=== PATIENT | female | born 1940 | race Caucasian/White ===

== ENCOUNTER 2017-05-20 19:52 | Emergency (ER) | payer OTHER ==
[~2017-05-20] VITALS: Ht 149.9 cm; Wt 61.5 kg
[~2017-05-20 19:52] MED LIST: AMLODIPINE BESY10 MG PO; AMLODIPINE BESYL5 MG PO; CEFDINIR300 MG PO; CINNAMON500 MG PO; CIPRO500 MG PO; COMPAZINE10 MG PO; COUMADIN2.5 MG PO; COUMADIN5 MG PO; DIGOXIN125 MCG PO; DIOVAN HCT 81 TABLET PO; DOCUSATE SODIU100 MG PO; Ecotrin PO; FENOFIBRATE54 M1 PO; GLIMEPIRIDE1 MG PO; LOPRESSOR25 MG PO; LOSARTAN POTASS25 MG PO; MECLIZINE HCL12.5 M1 PO; METOPROLOL TART50 MG PO; OMEPRAZOLE40 M1 PO; ONE-A-DAY ESSE1 EAC1 PO; ONGLYZA2.5 MG PO; RANITIDINE HCL150 MG PO; TRAVATAN Z5 ML BOTH EYES; WARFARIN SODIU2.5 MG PO
[2017-05-20 20:57] LABS: HEMATOCRIT 36.1 % (36.0-46.0); MCH 31.6 PG (29.0-34.0); MCHC 34.3 G/DL (30.0-36.0); MCV 92.1 FL (83-99); MEAN PLAT.VOLUME 9.1 uM^3 (9.5-12.4); PLATELET COUNT 95 K/uL (156-360); RBC DIS.WIDTH-CV 13.8 % (11.8-14.6); RBC DIS.WIDTH-SD 45.7 % (39-53); RED BLOOD COUNT 3.92 M/uL (3.80-5.20); WHITE BLOOD COUNT 5.3 K/uL (4.1-10.2)
[2017-05-20 21:06] LABS: CHLORIDE 110 mEq/L (99-109); POTASSIUM 3.8 mEq/L (3.7-5.4); SODIUM 145 mEq/L (136-147)
[2017-05-20 21:08] LABS: GLUCOSE 181 mg/dL (70-99)
[2017-05-20 21:10] LABS: ANION GAP 12 MEQ/L (2-14); TOTAL BILIRUBIN 0.7 mg/dL (0.0-1.0)
[2017-05-20 21:12] LABS: ALKALINE PHOSPHATASE 60 IU/L (3-129); GFR ESTIMATE (CALCULATED) 36 mL/min/
[2017-05-20 21:13] LABS: UREA NITROGEN (BUN) 30 mg/dL (9-23)
[2017-05-20 23:56] LABS: ADD MIUA? YES; BILIRUBIN NEGATIVE; BLOOD LARGE; COLOR YELLOW ((YELLOW)); GLUCOSE (STRIP) NEGATIVE; KETONES NEGATIVE; LEUKOCYTES MODERATE; NITRITE NEGATIVE; PROTEIN (STRIP) 100; SPECIFIC GRAVITY 1.019 (1.000-1.030); UROBILINOGEN 0.2 MG/DL (0.2-1.0)
[2017-05-21] MEDS ORDERED: BACTRIM,SEPT1 TABLET PO (00:19)
[2017-05-21 00:36] VITALS: BP 169/72
[2017-05-21 01:24] LABS: BACTERIA 3+ /HPF; EPITHELIAL CELLS RARE /HPF; MUCUS TRACE /LPF; RED BLOOD CELLS 30-40 /HPF (0-5); UCUL ADDED? YES; WHITE BLOOD CELLS TNTC /HPF (0-5)
== END 2017-05-21 00:37 | disposition home or self-care (01) ==
LOC: EME 19:52
DX: N30.01 Acute cystitis with hematuria (principal); E11.22 Type 2 diabetes mellitus with diabetic chronic kidney disease; N18.9 Chronic kidney disease, unspecified; Z87.440 Personal history of urinary (tract) infections; Z79.01 Long term (current) use of anticoagulants; Z87.442 Personal history of urinary calculi; Z95.0 Presence of cardiac pacemaker
CPT/HCPCS: 80053; 81003; 85027; 87077; 87086 GA; 87186; 99281; 99283

== ENCOUNTER 2017-06-26 12:23 | Inpatient (IN) | payer OTHER ==
[~2017-06-26] VITALS: Ht 149.9 cm; Wt 56.2 kg
[~2017-06-26 12:23] MED LIST changes: +BACTRIM,SEPT1 TABLET PO; +COUMADIN1 MG PO; -COUMADIN2.5 MG PO; +FENOFIBRATE160 M1 PO; -FENOFIBRATE54 M1 PO
[2017-06-26 15:16] LABS: EOSINOPHIL (%) 0.5 % (0-5); EOSINOPHIL COUNT 0.1 K/uL (0-0.3); HEMATOCRIT 39.5 % (36.0-46.0); IMMATURE GRANULOCYTE (%) 0.5 % (0.0-0.7); IMMATURE GRANULOCYTE COUNT 0.1 K/uL; INSTRUMENT ABS NEUTROPHIL CT 11.2 K/uL; LYMPHOCYTE COUNT 1.1 K/uL (1.0-2.8); MCH 30.1 PG (29.0-34.0); MCHC 32.9 G/DL (30.0-36.0); MCV 91.4 FL (83-99); MEAN PLAT.VOLUME 9.1 uM^3 (9.5-12.4); MONOCYTE (%) 5.9 % (3-12); MONOCYTE COUNT 0.8 K/uL (0-0.8); NEUTROPHIL (%) 84.5 % (45-76); NEUTROPHIL COUNT 11.2 K/uL (1.8-6.4); PLATELET COUNT 127 K/uL (156-360); RBC DIS.WIDTH-CV 13.8 % (11.8-14.6); RBC DIS.WIDTH-SD 46.5 % (39-53); RED BLOOD COUNT 4.32 M/uL (3.80-5.20); WHITE BLOOD COUNT 13.3 K/uL (4.1-10.2)
[2017-06-26 15:21] LABS: PROTHROMBIN TIME 14.7 SEC (10.2-12.9)
[2017-06-26 15:24] LABS: CHLORIDE 108 mEq/L (99-109); POTASSIUM 4.4 mEq/L (3.7-5.4); SODIUM 139 mEq/L (136-147)
[2017-06-26 15:26] LABS: GLUCOSE 166 mg/dL (70-99)
[2017-06-26 15:27] LABS: ANION GAP 10 MEQ/L (2-14)
[2017-06-26 15:28] LABS: INTER. NORMALIZED RATIO 1.3
[2017-06-26 15:30] LABS: GFR ESTIMATE (CALCULATED) 29 mL/min/
[2017-06-26 15:31] LABS: UREA NITROGEN (BUN) 28 mg/dL (9-23)
[2017-06-26] MEDS ORDERED: COUMADIN1 MG PO (17:32)
[2017-06-26] MEDS ORDERED: COZAAR100 MG PO (17:33)
[2017-06-26 18:29] LABS: TOTAL BILIRUBIN 1.1 mg/dL (0.0-1.0)
[2017-06-26 18:30] LABS: ALKALINE PHOSPHATASE 54 IU/L (3-129)
[2017-06-26 18:32] LABS: DIRECT BILIRUBIN 0.5 mg/dL (0.0-0.3)
[2017-06-26 22:44] VITALS: BP 180/81
[2017-06-27] VITALS (7 sets, daily range): BP systolic 115–176; BP diastolic 58–79
[2017-06-27 06:02] LABS: CHLORIDE 108 MEQ/L (99-109); GFR ESTIMATE (CALCULATED) 19 mL/min/; GLUCOSE 137 mg/dL (70-99); POTASSIUM 5.2 MEQ/L (3.7-5.4); SODIUM 137 MEQ/L (136-147); UREA NITROGEN (BUN) 33 mg/dL (9-23)
[2017-06-27 06:03] LABS: ANION GAP 9 MEQ/L (2-14); SAMPLE HEMOLYSIS CHECK 0; SAMPLE ICTERIC CHECK 0; SAMPLE LIPEMIA CHECK 0
[2017-06-27 06:14] LABS: HEMATOCRIT 33.7 % (36.0-46.0); MCH 30.2 PG (29.0-34.0); MCHC 32.6 G/DL (30.0-36.0); MCV 92.6 FL (83-99); RBC DIS.WIDTH-CV 13.9 % (11.8-14.6); RBC DIS.WIDTH-SD 46.8 % (39-53); RED BLOOD COUNT 3.64 M/uL (3.80-5.20); WHITE BLOOD COUNT 11.8 K/uL (4.1-10.2)
[2017-06-27 06:26] LABS: MEAN PLAT.VOLUME 9.5 uM^3 (9.5-12.4); PLAT.SUFFICIENCY DECREASED
[2017-06-27 06:28] LABS: PLATELET COUNT 75 K/uL (156-360)
[2017-06-27 14:07] LABS: HEMATOCRIT 35.1 % (36.0-46.0); MCH 30.2 PG (29.0-34.0); MCHC 32.5 G/DL (30.0-36.0); MCV 93.1 FL (83-99); MEAN PLAT.VOLUME 9.1 uM^3 (9.5-12.4); PLATELET COUNT 67 K/uL (156-360); RBC DIS.WIDTH-CV 14.1 % (11.8-14.6); RBC DIS.WIDTH-SD 47.8 % (39-53); RED BLOOD COUNT 3.77 M/uL (3.80-5.20); WHITE BLOOD COUNT 12.3 K/uL (4.1-10.2)
[2017-06-27 15:41] LABS: ADD MIUA? YES; BILIRUBIN NEGATIVE; BLOOD MODERATE; COLOR COLORLESS ((YELLOW)); GLUCOSE (STRIP) NEGATIVE; KETONES NEGATIVE; LEUKOCYTES NEGATIVE; NITRITE NEGATIVE; PROTEIN (STRIP) NEGATIVE; SPECIFIC GRAVITY 1.004 (1.000-1.030); UROBILINOGEN 0.2 MG/DL (0.2-1.0)
[2017-06-27 15:52] LABS: BACTERIA RARE /HPF; EPITHELIAL CELLS NONE SEEN /HPF; MUCUS TRACE /LPF; UCUL ADDED? NO; WHITE BLOOD CELLS 0-5 /HPF (0-5)
[2017-06-28 00:03] VITALS: BP 139/67
[2017-06-28 05:13] VITALS: BP 145/67
[2017-06-28 06:23] LABS: MCH 30.4 PG (29.0-34.0); MCHC 32.8 G/DL (30.0-36.0); MCV 92.7 FL (83-99); RBC DIS.WIDTH-CV 13.8 % (11.8-14.6); RBC DIS.WIDTH-SD 46.6 % (39-53); RED BLOOD COUNT 3.13 M/uL (3.80-5.20); WHITE BLOOD COUNT 9.7 K/uL (4.1-10.2)
[2017-06-28 06:52] LABS: ANION GAP 13 MEQ/L (2-14); CHLORIDE 108 MEQ/L (99-109); GLUCOSE 185 mg/dL (70-99); SAMPLE HEMOLYSIS CHECK 0; SAMPLE ICTERIC CHECK 0; SAMPLE LIPEMIA CHECK 0; SODIUM 137 MEQ/L (136-147); UREA NITROGEN (BUN) 42 mg/dL (9-23)
[2017-06-28 06:58] LABS: GFR ESTIMATE (CALCULATED) 15 mL/min/
[2017-06-28 07:17] VITALS: BP 167/85
[2017-06-28 07:26] LABS: IMM.PLATELET FRACTION 1.5 (1-7); MEAN PLAT.VOLUME 9.6 uM^3 (9.5-12.4); PLAT.SUFFICIENCY DECREASED
[2017-06-28 07:37] LABS: PLATELET COUNT 43 K/uL (156-360)
[2017-06-28 08:53] VITALS: BP 152/72
[2017-06-28 16:30] VITALS: BP 172/77
[2017-06-28 21:48] VITALS: BP 128/61
[2017-06-29 00:12] VITALS: BP 144/67
[2017-06-29 04:13] VITALS: BP 124/60
[2017-06-29 06:48] LABS: HEMATOCRIT 24.6 % (36.0-46.0); MCH 30.2 PG (29.0-34.0); MCHC 32.9 G/DL (30.0-36.0); MCV 91.8 FL (83-99); RBC DIS.WIDTH-CV 13.4 % (11.8-14.6); RBC DIS.WIDTH-SD 44.3 % (39-53); RED BLOOD COUNT 2.68 M/uL (3.80-5.20); WHITE BLOOD COUNT 4.5 K/uL (4.1-10.2)
[2017-06-29 07:21] LABS: ANION GAP 10 MEQ/L (2-14); CHLORIDE 112 MEQ/L (99-109); GFR ESTIMATE (CALCULATED) 20 mL/min/; GLUCOSE 158 mg/dL (70-99); POTASSIUM 3.7 MEQ/L (3.7-5.4); SAMPLE HEMOLYSIS CHECK 0; SAMPLE ICTERIC CHECK 0; SAMPLE LIPEMIA CHECK 0; SODIUM 141 MEQ/L (136-147); UREA NITROGEN (BUN) 43 mg/dL (9-23)
[2017-06-29 07:40] VITALS: BP 149/67
[2017-06-29 07:58] LABS: IMM.PLATELET FRACTION 3.1 (1-7); MEAN PLAT.VOLUME 9.9 uM^3 (9.5-12.4); PLATELET COUNT 36 K/uL (156-360)
[2017-06-29 11:55] VITALS: BP 165/74
[2017-06-29 15:28] VITALS: BP 158/72
[2017-06-30 00:39] VITALS: BP 120/60
[2017-06-30 06:31] LABS: EOSINOPHIL (%) 0.8 % (0-5); HEMATOCRIT 25.8 % (36.0-46.0); IMMATURE GRANULOCYTE (%) 0.4 % (0.0-0.7); INSTRUMENT ABS NEUTROPHIL CT 3.5 K/uL; LYMPHOCYTE COUNT 0.7 K/uL (1.0-2.8); MCH 30.6 PG (29.0-34.0); MCHC 33.3 G/DL (30.0-36.0); MCV 91.8 FL (83-99); MONOCYTE (%) 11.3 % (3-12); MONOCYTE COUNT 0.5 K/uL (0-0.8); NEUTROPHIL (%) 73.5 % (45-76); NEUTROPHIL COUNT 3.5 K/uL (1.8-6.4); RBC DIS.WIDTH-CV 13.4 % (11.8-14.6); RBC DIS.WIDTH-SD 45.1 % (39-53); RED BLOOD COUNT 2.81 M/uL (3.80-5.20); WHITE BLOOD COUNT 4.8 K/uL (4.1-10.2)
[2017-06-30 07:04] LABS: IMM.PLATELET FRACTION 1.9 (1-7); MEAN PLAT.VOLUME 10.6 uM^3 (9.5-12.4); PLATELET COUNT 44 K/uL (156-360)
[2017-06-30 07:17] VITALS: BP 187/75
[2017-06-30 08:19] LABS: ANION GAP 10 MEQ/L (2-14); CHLORIDE 112 MEQ/L (99-109); GFR ESTIMATE (CALCULATED) 24 mL/min/; GLUCOSE 162 mg/dL (70-99); IRON 10 MCG/DL (35-150); POTASSIUM 3.7 MEQ/L (3.7-5.4); SAMPLE HEMOLYSIS CHECK 0; SAMPLE ICTERIC CHECK 0; SAMPLE LIPEMIA CHECK 0; SODIUM 141 MEQ/L (136-147); UREA NITROGEN (BUN) 42 mg/dL (9-23)
[2017-06-30 15:30] VITALS: BP 170/85
[2017-06-30] MEDS ORDERED: CEFTIN500 MG PO (16:10)
== END 2017-06-30 17:57 | disposition home or self-care (01) | DRG 668 ==
LOC: EME 12:23 → 5EAST 18:12 → EDOF 18:12 → ENRESERV 18:14 → 5EAST 21:59
PROVIDERS: Family Medicine; Internal Medicine; Internal Medicine Nephrology; Physician Assistant
DX: N30.01 Acute cystitis with hematuria (principal); A41.59 Other Gram-negative sepsis; N17.9 Acute kidney failure, unspecified; N13.4 Hydroureter; N13.8 Other obstructive and reflux uropathy; E87.2 Acidosis; N28.89 Other specified disorders of kidney and ureter; N83.8 Other noninflammatory disorders of ovary, fallopian tube and broad ligament; D62 Acute posthemorrhagic anemia; D63.1 Anemia in chronic kidney disease; D69.6 Thrombocytopenia, unspecified; I12.9 Hypertensive chronic kidney disease with stage 1 through stage 4 chronic kidney disease, or unspecified chronic kidney disease; E11.22 Type 2 diabetes mellitus with diabetic chronic kidney disease; N18.3 Chronic kidney disease, stage 3 (moderate); I48.0 Paroxysmal atrial fibrillation; F41.9 Anxiety disorder, unspecified; K74.60 Unspecified cirrhosis of liver; K80.10 Calculus of gallbladder with chronic cholecystitis without obstruction; N85.2 Hypertrophy of uterus; N92.0 Excessive and frequent menstruation with regular cycle; R79.1 Abnormal coagulation profile; Z79.01 Long term (current) use of anticoagulants; K21.9 Gastro-esophageal reflux disease without esophagitis; Z95.0 Presence of cardiac pacemaker; N84.0 Polyp of corpus uteri
CPT/HCPCS: 74000; 74176; 76000; 76856; 80048; 80076; 81003; 83540; 83605; 84466; 84702 90; 84999; 85025; 85027; 85610; 86850; 86900; 86901; 87040; 87077; 87086; 87186; 87493; 87801; 88305; 99281; 99285; J0690; J0696; J2250; J3010; J7030; J7050